=== PATIENT | female | born 1960 | race Caucasian/White ===

== ENCOUNTER 2022-10-07 11:45 | Emergency (ER) | payer OTHER, SELFPAY ==
[2022-10-07 11:50] VITALS: BP 147/99; PULSE 78; RESP 22; TEMP 36.8; O2SAT 95; BMI 36.0
[2022-10-07] MEDS: METHYLPREDNISOLONE SOD SUCC PF 125 MG/2 ML VIAL IM (12:40)
[2022-10-07] MEDS: KETOROLAC TROMETHAMINE 60 MG/2 ML VIAL IM (12:40)
--- NOTE | 2022-10-07 12:54 | CT_ITS ---
The [address] [address] Patient Name: ALY PRICE MRN: [id number] date: 1960 Sex: F Assigned Patient Location: ER Current Patient Location: ER Accession/Order Number: [id number] Exam Date: 10/07/2022 12:46 Report Date: 10/07/2022 13:11 At the request of: RONALD CHEN Procedure: CT abdomen pelvis wo con EXAMINATION: CT abdomen pelvis wo con, 10/07/2022 9:46 AM PDT HISTORY: left flank pain COMPARISON: None. TECHNIQUE: CT scan of the abdomen and pelvis was performed without IV contrast. CT dose reduction technique was used, including Automated Exposure Control. FINDINGS: Lung: No significant finding. Liver: No significant finding. Gallbladder: Absent. Spleen: No significant finding. Pancreas: No significant finding. Adrenal glands: No significant finding. Kidneys, ureters and bladder: No renal/urinary tract calculi. Bowel: Colonic diverticulosis without diverticulitis. Normal appendix. Peritoneum/retroperitoneum: No significant finding. Lymph nodes: No significant finding. Vessels: No significant finding. Body wall: Tiny fat-containing umbilical hernia. Reproductive: Uterus is absent. Bones: L2 superior and inferior endplate deformity with heterogeneous lucent and sclerotic appearance of the vertebral body, approximately 25% height loss. Sclerotic appearance of the T11 posterior vertebral body CT/CT abdomen pelvis wo con IMPRESSION: Age-indeterminate L2 superior and inferior endplate fracture deformities with approximately 25% height loss, potentially pathologic fracture. Lucent and sclerotic appearance of the L2 vertebral body. Sclerotic T11 vertebral body lesion. Correlate for any history of osseous metastasis. Electronically authenticated by: KAMALA LEGGETT Date: 10/07/2022 13:11
[2022-10-07 12:57] LABS: Bilirubin Urine NEGATIVE (NEGATIVE); Blood Urine NEGATIVE (NEGATIVE); Clarity Urine CLEAR (CLEAR); Color Urine LT. YELLOW (YELLOW); Glucose Urine UA NEGATIVE (NEGATIVE); Ketones Urine NEGATIVE (NEGATIVE); Leukocyte Esterase Urine NEGATIVE (NEGATIVE); Nitrite Urine NEGATIVE (NEGATIVE); Protein Urine NEGATIVE (NEG/TRACE); Urobilinogen Urine 0.2 EU/dL (0.2-1.0)
[2022-10-07 12:59] LABS: Urine Microscopic Indicated NO
--- NOTE | 2022-10-07 13:22 | ED_ITS ---
HPI - General Adult General Chief complaint: Abdominal Pain Stated complaint: FLANK PAIN AND BACK PAIN Time Seen by Provider: 10/07/22 11:52 Source: patient and family Mode of arrival: walk-in Limitations: no limitations History of Present Illness HPI narrative: patient had low left back pain and saw a chiropractor 2 days ago. She said that she was doing the stretching exercises the chiropractor recommended and it felt good . This morning she was bending forward brushing her teeth when she suddenly developed intense pain and spasms of the left lower back. The pain radiates toward the left side of the abdomen. No relief with baclofen or NSAID at home. No trauma or fall. Related Data Home Medications Medication Instructions Recorded Confirmed anastrozole 1 mg tablet 1 mg PO DAILY 10/07/22 10/07/22 atorvastatin 10 mg tablet 10 mg PO DAILY 10/07/22 10/07/22 metformin 500 mg tablet 500 mg PO DAILY 10/07/22 10/07/22 paroxetine HCl 30 mg tablet 30 mg PO DAILY 10/07/22 10/07/22 pregabalin 75 mg capsule 75 mg PO BID 10/07/22 10/07/22 Previous Rx's Medication Instructions Recorded methocarbamol 750 mg tablet 750 mg PO Q6H #20 tabs 10/07/22 nabumetone 750 mg tablet 750 mg PO BID #14 tabs 10/07/22 Allergies Allergy/AdvReac Type Severity Reaction Status Date / Time celecoxib [From Celebrex] Allergy Severe Verified 10/07/22 11:55 morphine Allergy Severe Verified 10/07/22 11:55 codeine Allergy Intermediate Verified 10/07/22 11:55 Exam Narrative Exam Narrative: General: Alert, no acute distress, patient resting comfortably Skin: warm, intact, no pallor noted Head: Normocephalic, atraumatic Eye: Normal conjunctiva Respiratory: No acute distress Abdomen: Normal bowel sounds, soft, nontender, no masses detected. No rebound, guarding, or rigidity noted. Back: inspection of the back shows no obvious deformity, no swelling, no ecchymosis, contusion, abrasion, swelling, erythema, fluctuance or induration. Tenderness noted to left flank and paralumbar soft tissue with some spasms. No midline lumbar or sacral/coccyx tenderness. Straight leg raise on left is positive. Straight leg raise on right is positive. No CVA tenderness noted bilaterally. Musculoskeletal: No deformity noted to bilateral lower extremities. no cyanosis or mottling noted. normal pulses at DP and PT 2+ bilaterally and symmetrically. Normal 5/5 strength at ankles with dorsiflexion and plantar flexion. Patient is able to ambulate. Normal sensation noted to both lower extremities. Neurological: AAOx4, normal sensory and motor observed. L5-S1 reflexes intact symmetrically. DTR 2+ at patellar bilaterally. Psychiatric: Cooperative and interactive. Constitutional Vital Signs, click to edit/add: Last Vital Signs Temp 98.3 F 10/07/22 11:50 Pulse 78 10/07/22 11:50 Resp 22 10/07/22 11:50 BP 147/99 H 10/07/22 11:50 Pulse Ox 95 10/07/22 11:50 O2 Del Method Room Air 10/07/22 11:50 Course Vital Signs Vital signs: Vital Signs Temperature 98.3 F 10/07/22 11:50 Pulse Rate 78 10/07/22 11:50 Respiratory Rate 22 10/07/22 11:50 Blood Pressure 147/99 H 10/07/22 11:50 Pulse Oximetry 95 10/07/22 11:50 Oxygen Delivery Method Room Air 10/07/22 11:50 Temperature 98.3 F 10/07/22 11:50 Pulse Rate 78 10/07/22 11:50 Respiratory Rate 22 10/07/22 11:50 Blood Pressure 147/99 H 10/07/22 11:50 Pulse Oximetry 95 10/07/22 11:50 Oxygen Delivery Method Room Air 10/07/22 11:50 Medical Decision Making [facility] Narrative Medical decision making narrative: negative UA. Patient given IM Toradol and IM SOlumedrol and then went for CT abd/pelvis. No kidney stone or other acute pathology identified but the patient does have an L2 endplate fracture and pathological etiology cannot be ruled out. She was discharged home with prescriptions for Relafen and Robaxina nd given a copy of her CT report to take with her to PCP follow up. Lab Data Lab results reviewed: Yes I reviewed the patient's lab results Labs: Lab Results 10/07/22 Range/Units 12:45 Urine Color Lt. yellow (YELLOW) Urine Clarity Clear (CLEAR) Urine pH 7.0 (5.0-9.0) Ur Specific [place] 1.010 (1.005-1.025) Urine Protein Negative (NEG/TRACE) mg/dL Urine Glucose (UA) Negative (NEGATIVE) mg/dL Urine Ketones Negative (NEGATIVE) mg/dL Urine Occult Blood Negative (NEGATIVE) Urine Nitrite Negative (NEGATIVE) Urine Bilirubin Negative (NEGATIVE) Urine Urobilinogen 0.2 (0.2-1.0) EU/dL Ur Leukocyte Esterase Negative (NEGATIVE) Imaging Data ct abd/pelvis: Radiologist's impression: Patient Name: ALY PRICE MRN: [facility]:[id number] date: 1960 Sex: F Assigned Patient Location: ER Current Patient Location: ER Accession/Order Number: [id number] Exam Date: 10/07/2022 12:46 Report Date: 10/07/2022 13:11 At the request of: RONALD CHEN Procedure: CT abdomen pelvis wo con EXAMINATION: CT abdomen pelvis wo con, 10/07/2022 9:46 AM PDT HISTORY: left flank pain COMPARISON: None. TECHNIQUE: CT scan of the abdomen and pelvis was performed without IV contrast. CT dose reduction technique was used, including Automated Exposure Control. FINDINGS: Lung: No significant finding. Liver: No significant finding. Gallbladder: Absent. Spleen: No significant finding. Pancreas: No significant finding. Adrenal glands: No significant finding. Kidneys, ureters and bladder: No renal/urinary tract calculi. Bowel: Colonic diverticulosis without diverticulitis. Normal appendix. Peritoneum/retroperitoneum: No significant finding. Lymph nodes: No significant finding. Vessels: No significant finding. Body wall: Tiny fat-containing umbilical hernia. Reproductive: Uterus is absent. Bones: L2 superior and inferior endplate deformity with heterogeneous lucent and sclerotic appearance of the vertebral body, approximately 25% height loss. Sclerotic appearance of the T11 posterior vertebral body IMPRESSION: Age-indeterminate L2 superior and inferior endplate fracture deformities with approximately 25% height loss, potentially pathologic fracture. Lucent and sclerotic appearance of the L2 vertebral body. Sclerotic T11 vertebral body lesion. Correlate for any history of osseous metastasis. Electronically authenticated by: KAMALA LEGGETT Date: 10/07/2022 13:11 Discharge Plan Discharge Chief Complaint: Abdominal Pain Clinical Impression: Closed L2 vertebral fracture, Low back pain, Acute lumbar myofascial strain Patient Disposition: Home, Self-Care Time of Disposition Decision: 13:32 Prescriptions / Home Meds: New nabumetone 750 mg tablet 750 mg PO BID Qty: 14 0RF methocarbamol 750 mg tablet 750 mg PO Q6H Qty: 20 0RF No Action atorvastatin 10 mg tablet 10 mg PO DAILY metformin 500 mg tablet 500 mg PO DAILY pregabalin 75 mg capsule 75 mg PO BID anastrozole 1 mg tablet 1 mg PO DAILY paroxetine HCl 30 mg tablet 30 mg PO DAILY Instructions: Vertebral Compression Fracture (ED), Acute Low Back Pain (ED), Core Strengthening Exercises (ED) Stand Alone Forms: Portal Instructions Referrals: VIK NATHAN [Primary Care Provider] - 1 week
== END 2022-10-07 13:45 | disposition home or self-care (01) ==
PROVIDERS: Emergency Provider Emergency Medicine; PCP Internal Medicine
DX: S39.012A Strain of muscle, fascia and tendon of lower back, initial encounter (principal); S32.029A Unspecified fracture of second lumbar vertebra, initial encounter for closed fracture; X50.9XXA Other and unspecified overexertion or strenuous movements or postures, initial encounter; Z79.899 Other long term (current) drug therapy
CPT/HCPCS: 74176; 81003; 96372; 99285; J2930

== ENCOUNTER 2022-11-10 13:54 | Outpatient (OUT) | payer OTHER, SELFPAY ==
--- NOTE | 2022-11-10 | CT_ITS ---
The [address] [address] Patient Name: ALY PRICE MRN: [facility]:[id number] date: 1960 Sex: F Assigned Patient Location: CT Current Patient Location: Accession/Order Number: [id number] Exam Date: 11/10/2022 15:28 Report Date: 11/11/2022 06:12 At the request of: LIZETH FOX Procedure: CT chest w con EXAM: CT scan of the chest, abdomen and pelvis using 99 mL of IV iodinated contrast. Oral contrast Dose reduction technique used: Automated exposure control and/or adjustment of the mA and/or kV according to patient size and/or use of iterative reconstruction technique. REASON FOR EXAM: Breast cancer M89.9, Z85.3 COMPARISON: CT scan dated 10/07/2022 FINDINGS: CHEST: No concerning pulmonary nodules. No lymphadenopathy in the chest. No acute airspace opacities. No pneumothorax. No pleural effusion. No acute fractures. No central or segmental pulmonary emboli. No aortic dissection. Right mastectomy with 8.4 x 1.6 cm fluid collection in the operative bed. Left seventh rib sclerotic metastasis. T6 and T11 sclerotic metastases. ABDOMEN/PELVIS: No solid organ malignancy. No lymphadenopathy in the abdomen or pelvis. L2 and L4 vertebral body metastases with L2 superior and inferior endplate pathologic fractures., These are not significantly changed. Hysterectomy. Scattered colonic diverticula. Normal appendix. No free intraperitoneal air. No free fluid in the abdomen or pelvis. No dilated or thickened loops of small bowel or colon. No hydronephrosis or obstructing renal or ureteral calculi. Liver, pancreas, spleen, bilateral kidneys, and bilateral adrenal glands are otherwise unremarkable. Remainder unremarkable. CT/CT chest w con IMPRESSION: 1. Multiple predominantly sclerotic skeletal metastases, the L2 metastasis has pathologic endplate fractures. 2. No other metastases evidence in the chest, abdomen or pelvis. 3. Right mastectomy with fluid collection in the operative bed that likely represents postoperative seroma or hematoma. Electronically authenticated by: SHAGGY DOWLING Date: 11/11/2022 06:12
--- NOTE | 2022-11-10 | CT_ITS ---
The [address] [address] Patient Name: ALY PRICE MRN: [facility]:[id number] date: 1960 Sex: F Assigned Patient Location: CT Current Patient Location: Accession/Order Number: [id number] Exam Date: 11/10/2022 15:28 Report Date: 11/11/2022 06:12 At the request of: LIZETH FOX Procedure: CT abdomen pelvis w con EXAM: CT scan of the chest, abdomen and pelvis using 99 mL of IV iodinated contrast. Oral contrast Dose reduction technique used: Automated exposure control and/or adjustment of the mA and/or kV according to patient size and/or use of iterative reconstruction technique. REASON FOR EXAM: Breast cancer M89.9, Z85.3 COMPARISON: CT scan dated 10/07/2022 FINDINGS: CHEST: No concerning pulmonary nodules. No lymphadenopathy in the chest. No acute airspace opacities. No pneumothorax. No pleural effusion. No acute fractures. No central or segmental pulmonary emboli. No aortic dissection. Right mastectomy with 8.4 x 1.6 cm fluid collection in the operative bed. Left seventh rib sclerotic metastasis. T6 and T11 sclerotic metastases. ABDOMEN/PELVIS: No solid organ malignancy. No lymphadenopathy in the abdomen or pelvis. L2 and L4 vertebral body metastases with L2 superior and inferior endplate pathologic fractures., These are not significantly changed. Hysterectomy. Scattered colonic diverticula. Normal appendix. No free intraperitoneal air. No free fluid in the abdomen or pelvis. No dilated or thickened loops of small bowel or colon. No hydronephrosis or obstructing renal or ureteral calculi. Liver, pancreas, spleen, bilateral kidneys, and bilateral adrenal glands are otherwise unremarkable. Remainder unremarkable. CT/CT abdomen pelvis w con IMPRESSION: 1. Multiple predominantly sclerotic skeletal metastases, the L2 metastasis has pathologic endplate fractures. 2. No other metastases evidence in the chest, abdomen or pelvis. 3. Right mastectomy with fluid collection in the operative bed that likely represents postoperative seroma or hematoma. Electronically authenticated by: SHAGGY DOWLING Date: 11/11/2022 06:12
== END 2022-11-10 13:55 | disposition home or self-care (01) ==
PROVIDERS: PCP Internal Medicine; Visit Provider Internal Medicine
DX: M89.9 Disorder of bone, unspecified (principal); Z85.3 Personal history of malignant neoplasm of breast
CPT/HCPCS: 71260; 74177; Q9967

== ENCOUNTER 2022-12-25 11:14 | Observation (INO) | payer OTHER, SELFPAY ==
[2022-12-25] VITALS (7 sets, daily range): BP systolic 130–156; BP diastolic 65–86; PULSE 78–89; RESP 14–20; TEMP 36.6–37.6; O2SAT 93–96; BMI 34.3; BMI 38.8
[2022-12-25] MEDS: HYDROMORPHONE HCL 2 MG/ML VIAL 1 MG IV (11:50)
[2022-12-25] MEDS: 0.9 % SODIUM CHLORIDE 1,000 ML 1000 ML IV (11:51)
--- NOTE | 2022-12-25 11:59 | ED.GENADUL1 ---
HPI - General Adult General Chief complaint: Nausea/Vomiting/Diarrhea Stated complaint: GENERAL WEAKNESS Time Seen by Provider: 12/25/22 11:24 Source: patient Mode of arrival: ambulance Limitations: no limitations History of Present Illness HPI narrative: Patient is a 62-year-old female who is presenting with nausea and vomiting from last night and today. She is also complaining of acute on chronic lower back pain, lumbar spasm. Patient had CAT scans done in September, she was diagnosed with a L2 fracture. states there were several spots in the thoracic spine the affected could be compression fractures as well.Patient had multiple MRIs done 2 weeks ago looking at her thoracic and lumbar spine along with her chest, abdomen, and pelvis. Patient has a history of breast cancer. Patient's had meniscectomy. Patient had previous chemotherapy and radiation. Patient has found out that her multiple MRIs were done 2 weeks ago does not show any metastases to the chest, abdomen or pelvis. Despite taking daily pain medication muscle axis, patient is not having any difficulties with constipation. Patient takes stool softeners daily. Patient has been struggling to get a biopsy done. To see if there is a different type of possible bone cancer so that the oncologist knows how to treat this. Patient is working with Dr. Delio Magaña. Patient has been seen the [facility] oncology unit/office at [facility]. Patient at bedside. Patient's having a hard time functioning at home waiting to get a biopsy done to see what the next steps are with treatment of cancer if it is present. Patient and are getting frustrated because time is passing. There is been difficulties with insurance covering the physician who will do the biopsy but did not covering the hospital with a facility where the biopsy would be done. The family found a facility at [facility] where the physician and hospital are covered under patient's insurance. They're trying to set up a outpatient biopsy to be done to get more information so that Dr. Magaña is able to start therapy if needed. Patient has been taking [place] and tizanidine around the clock to help with pain and muscle spasm. Patient is now declining and having a hard time functioning at home. Patient tries use cane, walker, and other family members to help her move and function and perform ADLs. Patient had nausea and vomiting of clear phlegm last night and today. Patient's had no new falls, no new injuries. There are supposed to be phone calls today were patient will have her outpatient biopsy set up. There is a concern from family and how patient gets a [place] and transfer there. We discussed taking pain and muscle relaxer medication before driving in private car, we discussed the possibility of being admitted for intractable pain, they are aware that I cannot transfer patient just to sit at [facility] in [place] for a biopsy to be done which is what they were hoping for. We discussed insurance complications at times, pt and frustrations, admission criteria, and criteria to transfer from one hospital to another. This discussion was had with patient and at bedside Related Data Home Medications Medication Instructions Recorded Confirmed anastrozole 1 mg tablet 1 mg PO DAILY 10/07/22 12/25/22 atorvastatin 10 mg tablet 10 mg PO DAILY 10/07/22 12/25/22 metformin 500 mg tablet 500 mg PO DAILY 10/07/22 12/25/22 paroxetine HCl 30 mg tablet 30 mg PO DAILY 10/07/22 12/25/22 pregabalin 75 mg capsule 75 mg PO BID 10/07/22 12/25/22 albuterol sulfate 90 mcg/actuation 2 puff inhalation Q6H PRN 12/25/22 12/25/22 aerosol inhaler shortness of breath or wheezing hydrocodone 5 mg-acetaminophen 325 1 tab PO Q4H PRN pain 12/25/22 12/25/22 mg tablet tizanidine 4 mg tablet 4 mg PO Q8H PRN muscle spasticity 12/25/22 12/25/22 Allergies Allergy/AdvReac Type Severity Reaction Status Date / Time celecoxib [From Celebrex] Allergy Severe Verified 10/07/22 11:55 morphine Allergy Severe Verified 10/07/22 11:55 Review of Systems ROS Narrative All systems are negative except as noted/marked. All systems reviewed and otherwise negative. PFSH PFSH Social History Smoking status: Former smoker Exam Narrative Exam Narrative: Nurses note and vital signs reviewed and patient is not hypoxic. General: The patient appears Uncomfortable, having intermittent lumbar spasms. Patient is resting uncomfortably on cart. Patient is not toxic, lethargic, or listless Skin: Warm, dry, no pallor noted. There is no rash noted. No petechiae, purpura. Head: Normocephalic, atraumatic Eye: Normal conjunctiva, no drainage, EOMI. PERRL Ears, Nose, Mouth, and Throat: oral mucosa is moist. Nares patent. Mouth without vesicles. Cardiovascular: Regular Rate and Rhythm, no murmur, gallop, rub Respiratory: Patient is in no distress, no accessory muscle use, lungs are clear to auscultation, no wheezing, rales or rhonchi Back: non-tender, no CVA tenderness bilaterally to percussion. No CT LS midline pain GI: soft, obese, no tenderness to palpation, no masses appreciated. No rebound, guarding, or rigidity noted. No flank pain bilateral, No distention Musculoskeletal: Patient has full range of motion of all of the extremities, no motor, sensory, or focal neurological deficits Neurological: A&O x3, normal speech Psychiatric: Cooperative Constitutional Vital Signs, click to edit/add: Last Vital Signs Temp 97.8 F 12/25/22 16:40 Pulse 89 12/25/22 16:40 Resp 14 12/25/22 16:40 BP 138/80 12/25/22 16:40 Pulse Ox 93 L 12/25/22 16:40 O2 Del Method Room Air 12/25/22 16:40 Course Vital Signs Vital signs: Vital Signs Temperature 98.3 F 12/25/22 11:15 Pulse Rate 79 12/25/22 11:15 Respiratory Rate 20 12/25/22 11:15 Blood Pressure 130/65 12/25/22 11:15 Pulse Oximetry 96 12/25/22 11:15 Temperature 97.8 F 12/25/22 16:40 Pulse Rate 89 12/25/22 16:40 Respiratory Rate 14 12/25/22 16:40 Blood Pressure 138/80 12/25/22 16:40 Pulse Oximetry 93 L 12/25/22 16:40 Oxygen Delivery Method Room Air 12/25/22 16:40 Medical Decision Making MDM Narrative Medical decision making narrative: . There has been a significant amount of time spent with this patient today with a phone call to Oly from the [facility] oncology office. I have spoken to patient's oncologist, Dr. Delio Magaña twice as well. I spent well over 45 minutes of bedside speaking to patient and several different times and trying to arrange a safe disposition for this patient. Patient was refusing to take patient home secondary to intractable pain, fall risk, intractable lumbar pain, intractable intermittent lumbar spasm and feelinng outpatient therapy with [place] and tizanidine for muscle relaxer. Patient has a outpatient biopsy set up with Dr. Little at 200PM on Sunday, December 27. [address] spoke to hospitalist Dr Dueñas. They are accepting of patient's admission secondary to intractable pain, spasm, L2 fracture, multiple spots in metastases of unknown origin of cancer in light of history of breast cancer. There admission is discharge dependent at this time, they may have discharges later this afternoon if not they should have a discharge tomorrow. They are aware that patient has a procedure scheduled at 2:00 on Sunday for bone biopsy to try and get further evaluation information on the new spots of potential cancer. 1500 patient are very thankful for the time spent at bedside, and multiple phone calls. Patient will remain in the Emergency Room until approximate 07/6029 p.m. to see if patient can be safely transferred to [facility] or patient needs to be admitted to [facility] until she is transferred tomorrow. Patient is given a 2nd dose of Dilaudid and Valium. I spoken to [facility] social worker palliative care as well about this case 2 different times and person and on the phone as well. 1600 Reviewing patient's oncology notes from [facility], from Dr. Currie, patient had a right breast cancer in 2007. Patient had a partial hysterectomy but ovaries remain. Patient had a right breast lumpectomy in 2007. Patient was treated with radiation and tamoxifen. Patient ended up having a right modified radical meniscectomy and colonoscopy In 2020. In 2020, patient was receiving chemotherapy. In September [address] that showed a L2 compression fracture and lesions to thoracic vertebral bodies. 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 Patient had MRIs done several weeks ago from today, patient had MRI of the thoracic spine and MRI of the lumbar spine. 1814 Patient is admitted to [facility] for observation until patient has a room tomorrow at [facility] for transfer. Patient has been given 2 separate doses of Dilaudid and Valium. She's been given several nausea medications as well. At 5:00PM I spoke to the nursing ranch hand supervisor Suha at [facility], and they were going to try and find a bed at [facility], but they had 5 or 6 people in the Emergency Room And most likely did not have a bed available this evening. I did call back at approximately 545PM and we spoke to the transfer line and there is no bed available tonight for transfer, patient will be admitted to [facility]. I spoke to Dr. Segovia and patient be admitted to [facility] for intractable pain, intractable lumbar spasm, inability to ambulate and function at home. Patient's refused to take her home earlier this afternoon. Patient and are very thankful for the help,. Patient has been admitted to Dr. Dueñas at [facility]. Critical care time 65 minutes exclusive from separate billable procedures that were performed. The following was considered in the determination of critical care but not limited to the level of medical decision making, intensive cardiac and/or respiratory monitoring, frequent vital sign monitoring, evaluation of laboratory studies, evaluation of radiographic studies, oxygen monitoring, and constant monitoring and speaking to family at bedside Lab Data Labs: Lab Results 12/25/22 12/25/22 Range/Units 12:04 12:20 WBC 10.5 (4.0-11.0) 10^3/uL RBC 4.46 (4.20-5.40) 10^6/uL Hgb 13.3 (12.0-16.0) g/dL Hct 41.0 (36.0-48.0) % MCV 91.9 (81.0-99.0) fL MCH 29.8 (26.7-34.0) pg MCHC 32.4 (29.9-35.2) g/dL RDW 12.1 (11.0-15.0) % Plt Count 288 (150-450) 10^3/uL MPV 8.4 L (9.5-13.5) fL Neut % (Auto) 77.4 H (43.0-75.0) % Lymph % (Auto) 14.6 L (20.5-60.0) % [place] % (Auto) 6.5 (1.7-12.0) % Eos % (Auto) 0.2 L (0.9-7.0) % Baso % (Auto) 0.4 (0.2-2.0) % Neut # (Auto) 8.1 H (1.4-6.5) 10^3/uL Lymph # (Auto) 1.5 (1.2-3.8) 10^3/uL [place] # (Auto) 0.7 (0.3-0.8) 10^3/uL Eos # (Auto) 0.0 (0.0-0.7) 10^3/uL Baso # (Auto) 0.0 (0.0-0.1) 10^3/uL Abs Immat Gran (auto) 0.09 H (0.00-0.03) 10^3/uL Imm/Tot Granulo (auto) 0.9 H (0.0-0.5) % Sodium 139 (136-145) mmol/L Potassium 3.5 (3.5-5.1) mmol/L Chloride 105 (98-107) mmol/L Carbon Dioxide 22.7 (21.0-32.0) mmol/L Anion Gap 14.8 BUN 15.0 (7.0-18.0) mg/dL Creatinine 0.66 (0.55-1.02) mg/dL Est GFR ( Amer) >60 (>=60) Est GFR (Non-Af Amer) >60 (>=60) BUN/Creatinine Ratio 22.7 Glucose 149 H (74-106) mg/dL Lactate 1.4 (0.4-2.0) mmol/L Calcium 8.7 (8.5-10.1) mg/dL Total Bilirubin 0.7 (0.2-1.0) mg/dL AST 26 (15-37) U/L ALT 33 (14-59) U/L Alkaline Phosphatase 139 H (46-116) U/L Total Protein 7.7 (6.4-8.2) g/dL Albumin 3.4 (3.4-5.0) g/dL Globulin 4.3 g/dL Albumin/Globulin Ratio 0.8 Lipase 33.0 (16.0-77.0) U/L Urine Color Lt. yellow (YELLOW) Urine Clarity Clear (CLEAR) Urine pH 6.5 (5.0-9.0) Ur Specific [place] 1.010 (1.005-1.025) Urine Protein Negative (NEG/TRACE) mg/dL Urine Glucose (UA) Negative (NEGATIVE) mg/dL Urine Ketones Negative (NEGATIVE) mg/dL Urine Occult Blood Trace-i (NEGATIVE) Urine Nitrite Negative (NEGATIVE) Urine Bilirubin Negative (NEGATIVE) Urine Urobilinogen 0.2 (0.2-1.0) EU/dL Ur Leukocyte Esterase Negative (NEGATIVE) Urine RBC 0-2 (0-2) #/HPF Urine WBC 0-2 A (NONE SEEN) #/HPF Ur Squamous Epith Cells Rare (NONE/RARE) #/LPF Urine Crystals None seen (None Seen) #/HPF Urine Bacteria None seen (NONE SEEN) #/HPF Urine Casts None seen (NONE SEEN) #/LPF Urine Mucus None seen (NONE SEEN) Discharge Plan Discharge Chief Complaint: Nausea/Vomiting/Diarrhea Clinical Impression: Closed L2 vertebral fracture, Low back pain, Nausea & vomiting, Acute lumbar myofascial strain Patient Disposition: Home, Self-Care Condition: Fair Prescriptions / Home Meds: No Action albuterol sulfate 90 mcg/actuation HFA aerosol inhaler 2 puff INHALATION Q6H PRN (Reason: shortness of breath or wheezing) hydrocodone-acetaminophen 5-325 mg tablet 1 tab PO Q4H PRN (Reason: pain) tizanidine 4 mg tablet 4 mg PO Q8H PRN (Reason: muscle spasticity) atorvastatin 10 mg tablet 10 mg PO DAILY metformin 500 mg tablet 500 mg PO DAILY pregabalin 75 mg capsule 75 mg PO BID anastrozole 1 mg tablet 1 mg PO DAILY paroxetine HCl 30 mg tablet 30 mg PO DAILY Stand Alone Forms: Portal Instructions Referrals: VIK NATHAN [Primary Care Provider] - 1 week
[2022-12-25] MEDS: DIAZEPAM 5 MG/ML - 2 ML INJ SYRINGE 2 MG IV ×2 (12:05→15:37)
[2022-12-25] MEDS: ONDANSETRON PF 4 MG/2 ML VIAL IV ×2 (12:06→22:02)
[2022-12-25] MEDS: PROCHLORPERAZINE 10 MG/2 ML VIAL 5 MG IV (12:06)
[2022-12-25 12:16] LABS: Basophils Percent Auto 0.4 % (0.2-2.0); Eosinophils Percent Auto 0.2 % (0.9-7.0); Hemoglobin 13.3 g/dL (12.0-16.0); Immature Granulocytes Abs Auto 0.09 10^3/uL (0.00-0.03); Immature Granulocytes Pct Auto 0.9 % (0.0-0.5); Lymphocytes Absolute Auto 1.5 10^3/uL (1.2-3.8); Lymphocytes Percent Auto 14.6 % (20.5-60.0); Mean Corpuscular HGB Conc 32.4 g/dL (29.9-35.2); Mean Corpuscular Hemoglobin 29.8 pg (26.7-34.0); Mean Corpuscular Volume 91.9 fL (81.0-99.0); Mean Platelet Volume 8.4 fL (9.5-13.5); Monocytes Absolute Auto 0.7 10^3/uL (0.3-0.8); Monocytes Percent Auto 6.5 % (1.7-12.0); Neutrophils Absolute Auto 8.1 10^3/uL (1.4-6.5); Neutrophils Percent Auto 77.4 % (43.0-75.0); Platelet Count 288 10^3/uL (150-450); Red Blood Count 4.46 10^6/uL (4.20-5.40); Red Cell Distribution Width 12.1 % (11.0-15.0); White Blood Count 10.5 10^3/uL (4.0-11.0)
[2022-12-25 12:27] LABS: Alanine Aminotransferase 33 U/L (14-59); Albumin Globulin Ratio 0.8; Albumin Level 3.4 g/dL (3.4-5.0); Alkaline Phosphatase 139 U/L (46-116); Anion Gap 14.8; Aspartate Amino Transferase 26 U/L (15-37); BUN Creatinine Ratio 22.7; Bilirubin Total 0.7 mg/dL (0.2-1.0); Calcium 8.7 mg/dL (8.5-10.1); Carbon Dioxide 22.7 mmol/L (21.0-32.0); Chloride 105 mmol/L (98-107); Estimated GFR (African America >60 (>=60); Estimated GFR (Non-African Ame >60 (>=60); Globulin 4.3 g/dL; Glucose 149 mg/dL (74-106); Potassium 3.5 mmol/L (3.5-5.1); Sodium 139 mmol/L (136-145); Total Protein 7.7 g/dL (6.4-8.2)
[2022-12-25 12:30] LABS: Lactate/Lactic Acid 1.4 mmol/L (0.4-2.0)
[2022-12-25 12:42] LABS: Bilirubin Urine NEGATIVE (NEGATIVE); Blood Urine TRACE-I (NEGATIVE); Clarity Urine CLEAR (CLEAR); Color Urine LT. YELLOW (YELLOW); Glucose Urine UA NEGATIVE (NEGATIVE); Ketones Urine NEGATIVE (NEGATIVE); Leukocyte Esterase Urine NEGATIVE (NEGATIVE); Nitrite Urine NEGATIVE (NEGATIVE); Protein Urine NEGATIVE (NEG/TRACE); Urobilinogen Urine 0.2 EU/dL (0.2-1.0); pH Urine 6.5 (5.0-9.0)
[2022-12-25 12:48] LABS: Bacteria Urine NONE SEEN #/HPF (NONE SEEN); Cast Seen? NONE SEEN #/LPF (NONE SEEN); Crystals Seen? None Seen #/HPF (None Seen); Mucus Urine NONE SEEN (NONE SEEN); RBC Urine 0-2 #/HPF (0-2); Squamous Epithelial Cell Urine RARE #/LPF (NONE/RARE); WBC Urine 0-2 #/HPF (NONE SEEN)
[2022-12-25] MEDS: HYDROMORPHONE HCL 2 MG/ML VIAL IV (15:36)
[2022-12-25] MEDS: HYDROMORPHONE HCL 1 MG/ML CARTRIDGE IV (22:02)
[2022-12-25] MEDS: PREGABALIN 75 MG CAPSULE PO (22:03)
[2022-12-25 22:15] LABS: Glucometer 135 mg/dL (74-106)
[2022-12-26] MEDS: DIAZEPAM 5 MG/ML - 2 ML INJ SYRINGE IV (01:08)
[2022-12-26] MEDS: ONDANSETRON PF 4 MG/2 ML VIAL IV ×2 (04:32→09:22)
[2022-12-26 04:54] LABS: Basophils Absolute Auto 0.1 10^3/uL (0.0-0.1); Basophils Percent Auto 0.6 % (0.2-2.0); Eosinophils Percent Auto 0.3 % (0.9-7.0); Hematocrit 41.1 % (36.0-48.0); Hemoglobin 13.3 g/dL (12.0-16.0); Immature Granulocytes Abs Auto 0.07 10^3/uL (0.00-0.03); Immature Granulocytes Pct Auto 0.6 % (0.0-0.5); Lymphocytes Absolute Auto 2.6 10^3/uL (1.2-3.8); Lymphocytes Percent Auto 21.4 % (20.5-60.0); Mean Corpuscular HGB Conc 32.4 g/dL (29.9-35.2); Mean Corpuscular Hemoglobin 29.8 pg (26.7-34.0); Mean Corpuscular Volume 91.9 fL (81.0-99.0); Mean Platelet Volume 8.4 fL (9.5-13.5); Monocytes Percent Auto 8.5 % (1.7-12.0); Neutrophils Absolute Auto 8.3 10^3/uL (1.4-6.5); Neutrophils Percent Auto 68.6 % (43.0-75.0); Platelet Count 342 10^3/uL (150-450); Red Blood Count 4.47 10^6/uL (4.20-5.40); Red Cell Distribution Width 12.4 % (11.0-15.0); White Blood Count 12.1 10^3/uL (4.0-11.0)
[2022-12-26] MEDS: ACETAMINOPHEN 500 MG TABLET 1000 MG PO (05:00)
[2022-12-26 05:09] VITALS: BP 139/74; PULSE 78; RESP 20; TEMP 36.9; O2SAT 93
[2022-12-26 05:20] LABS: Alanine Aminotransferase 34 U/L (14-59); Albumin Globulin Ratio 0.8; Albumin Level 3.6 g/dL (3.4-5.0); Alkaline Phosphatase 145 U/L (46-116); Anion Gap 13.9; Aspartate Amino Transferase 24 U/L (15-37); BUN Creatinine Ratio 13.9; Bilirubin Total 0.9 mg/dL (0.2-1.0); Calcium 8.9 mg/dL (8.5-10.1); Carbon Dioxide 24.7 mmol/L (21.0-32.0); Chloride 104 mmol/L (98-107); Estimated GFR (African America >60 (>=60); Estimated GFR (Non-African Ame >60 (>=60); Globulin 4.5 g/dL; Glucose 140 mg/dL (74-106); Potassium 3.6 mmol/L (3.5-5.1); Sodium 139 mmol/L (136-145); Total Protein 8.1 g/dL (6.4-8.2)
[2022-12-26 07:51] VITALS: O2SAT 91
--- NOTE | 2022-12-26 09:00 | CM.NOTE ---
Rounds made with Dr. Segovia pt will be transferred this AM to [facility].
[2022-12-26] MEDS: HYDROMORPHONE HCL 1 MG/ML CARTRIDGE IV (09:18)
--- NOTE | 2022-12-26 10:22 | PM.HP ---
H&P: HPI History of Present Illness Chief complaint: Weakness, nausea and vomiting Narrative: 62 y/o female with a history of breast cancer previously treated by mastectomy along with chemo and radiation presents with weakness. C/o low back pain for months. In September CT showed lumbar compression fracture and likely metastatic disease. Found beverley lesions throughout lumbar and thoracic spine. Following with oncology and attempting to arrange for biopsy and scheduled 12/27 in [place]. Increased pain and weakness. Not able to ambulate or move right leg. Severe pain and norco not helping. Developed nausea and vomiting due to pain and to ER. Labs showed normal CBC and chem 14. Normal UA and chest x-ray. Discussed with oncology and recommended transfer for biopsy and treatment. Contacted [place] and accepted but no available bed and admitted. Started zofran and dilaudid. Comfortable overnight and pain tolerable. Review of Systems ROS Constitutional Denies: fever, chills or night sweats Cardiovascular Denies: chest pain, palpitations, edema or lightheadedness Respiratory Denies: shortness of breath, cough or wheezing Gastrointestinal Reports: nausea and vomiting; Denies: abdominal pain or diarrhea Genitourinary Denies: painful urination [facility] Medical History (Updated 12/26/22 @ 09:30 by Remigio Segovia MD) Acute lumbar myofascial strain ?S39.012A - Strain of muscle, fascia and tendon of lower back, initial encounter (ICD-10) Closed L2 vertebral fracture ?S32.029A - Unspecified fracture of second lumbar vertebra, initial encounter for closed fracture (ICD-10) Low back pain ?M54.50 - Low back pain, unspecified (ICD-10) Surgical History (Updated 12/25/22 @ 18:43 by Phyllis Walker) H/O right mastectomy ?Z90.11 - Acquired absence of right breast and nipple (ICD-10) H/O: hysterectomy ?Z90.710 - Acquired absence of both cervix and uterus (ICD-10) History of lumpectomy of right breast ?Z98.890 - Other specified postprocedural states (ICD-10) Hx of cholecystectomy ?Z90.49 - Acquired absence of other specified parts of digestive tract (ICD-10) Family History (Updated 12/25/22 @ 18:45 by Phyllis Walker) Mother Family history of CHF (congestive heart failure) Family history of COPD (chronic obstructive pulmonary disease) Family history of hypertension Grandson No problems noted. Grandmother Family history of diabetes mellitus Father Family history of cancer Grandfather Family history of hypertension Social History (Updated 12/25/22 @ 18:46 by Phyllis Walker) Within the past year, how often did you have a drink containing alcohol: never Within the past year, how many standard drinks containing alcohol did you have on a typical day: 1 or 2 Within the past year, how often did you have six or more drinks on one occasion: never Total score: 0 Score interpretation: A score less than 3 is consistent with normal alcohol consumption. Smoking status: Former smoker Non-prescribed substance use: denies use Previous occupational history: retired Highest level of school completed/degree received: high school graduate Are you now , , , , never or living with a partner: In a typical week, how many times do you talk on the telephone with family, friends, or neighbors: 3 or more times per week How often do you get together with friends or relatives: 3 or more times per week How often do you attend sabianist or anabaptist services: 4 or more times per year Do you belong to any clubs or organizations such as sabianist groups unions, [employer] or athletic groups, or school groups: no Total score: 3 Score interpretation: A score of greater than or equal to 2 indicates the lowest level of social isolation. Little interest or pleasure in doing things: not at all Feeling down, depressed, or hopeless: not at all Feel stressed/tense/nervous/anxious/difficulty sleeping: not at all Do you think of yourself as: straight/heterosexual Gender Identity: female Meds Home Medications and Allergies Home Medications Medication Instructions Recorded Confirmed Type anastrozole 1 mg tablet 1 mg PO DAILY 10/07/22 12/25/22 History atorvastatin 10 mg tablet 10 mg PO DAILY 10/07/22 12/25/22 History metformin 500 mg tablet 500 mg PO DAILY 10/07/22 12/25/22 History paroxetine HCl 30 mg tablet 30 mg PO DAILY 10/07/22 12/25/22 History pregabalin 75 mg capsule 75 mg PO BID 10/07/22 12/25/22 History albuterol sulfate 90 mcg/actuation 2 puff inhalation Q6H PRN 12/25/22 12/25/22 History aerosol inhaler shortness of breath or wheezing hydrocodone 5 mg-acetaminophen 325 1 tab PO Q4H PRN pain 12/25/22 12/25/22 History mg tablet tizanidine 4 mg tablet 4 mg PO Q8H PRN muscle spasticity 12/25/22 12/25/22 History Allergies Allergy/AdvReac Type Severity Reaction Status Date / Time celecoxib [From Celebrex] Allergy Severe Verified 10/07/22 11:55 morphine Allergy Severe Verified 10/07/22 11:55 Exam Constitutional Vital Signs, click to edit/add: Last Vital Signs Temp 98.4 F 12/26/22 05:09 Pulse 78 12/26/22 05:09 Resp 20 12/26/22 05:09 BP 139/74 12/26/22 05:09 Pulse Ox 91 L 12/26/22 07:51 O2 Del Method Room Air 12/26/22 05:09 Documenting provider has reviewed patient's vital signs: yes Common normals: no apparent distress, oriented x3 and alert HENMT Common normals: normocephalic Eye Common normals: PERRL and EOMs intact bilaterally Respiratory Common normals: normal respiratory effort and clear to auscultation bilaterally Cardio Common normals: regular rate, regular rhythm, no gallops, no murmurs and no rub GI Common normals: Normal to inspection, nondistended, normoactive bowel sounds present and non-tender Extremity Common normals: no pedal edema Results Labs Labs: Short CBC 12/25/22 12/26/22 Range/Units 12:04 04:06 WBC 10.5 12.1 H (4.0-11.0) 10^3/uL Hgb 13.3 13.3 (12.0-16.0) g/dL Hct 41.0 41.1 (36.0-48.0) % Plt Count 288 342 (150-450) 10^3/uL BMP 12/25/22 12/26/22 12:04 04:06 Sodium 139 139 Potassium 3.5 3.6 Chloride 105 104 Carbon Dioxide 22.7 24.7 BUN 15.0 11.0 Creatinine 0.66 0.79 Glucose 149 H 140 H Calcium 8.7 8.9 Liver Function 12/25/22 12/26/22 Range/Units 12:04 04:06 Total Bilirubin 0.7 0.9 (0.2-1.0) mg/dL AST 26 24 (15-37) U/L ALT 33 34 (14-59) U/L Alkaline Phosphatase 139 H 145 H (46-116) U/L Albumin 3.4 3.6 (3.4-5.0) g/dL Urine 12/25/22 Range/Units 12:20 Urine Color Lt. 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 Improved with medication. Accepted at [place] and bed available. Transferred in stable condition for further treatment and biopsy.
== END 2022-12-26 09:44 | disposition short-term general hospital (02) ==
LOC: ER 15:25 → MS 18:31
PROVIDERS: Admitting Provider Family Medicine; Emergency Provider Emergency Medicine; PCP Internal Medicine; Visit Provider Family Medicine
DX: M84.58XA Pathological fracture in neoplastic disease, other specified site, initial encounter for fracture (principal); R11.2 Nausea with vomiting, unspecified; E78.5 Hyperlipidemia, unspecified; R73.03 Prediabetes; Z85.3 Personal history of malignant neoplasm of breast; Z90.11 Acquired absence of right breast and nipple; Z90.710 Acquired absence of both cervix and uterus; Z90.49 Acquired absence of other specified parts of digestive tract; Z87.891 Personal history of nicotine dependence; Z79.899 Other long term (current) drug therapy; Z79.84 Long term (current) use of oral hypoglycemic drugs
CPT/HCPCS: 36415; 80053; 81001; 82948; 83605; 83690; 85025; 96361; 96374; 96375; 96376; 99285; G0378; J1170

== ENCOUNTER 2023-01-28 14:17 | Emergency (ER) | payer MEDICARE, OTHER, SELFPAY ==
[2023-01-28] VITALS (48 sets, daily range): BP systolic 108–163; BP diastolic 73–92; PULSE 74–123; RESP 14–26; TEMP 37; O2SAT 90–99; BMI 35.7
--- NOTE | 2023-01-28 14:31 | ECG_ITS ---
The [facility] Test Date: 2023-01-28 Pat Name: ALY PRICE Department: Room: - Gender: Female Box Blank Machine Feeder: : 1960 Requested By: VIK NATHAN Order Number: [id number] Reading MD: DAPHNIE PANIAGUA Measurements Intervals [place] Rate: 75 P: 70 SD: 156 QRS: 68 QRSD: 88 T: 51 QT: 394 QTc: 423 Interpretive Statements 1100 Sinus rhythm 9110 normal ECG No previous ECG available for comparison Electronically Signed On 01-28-2023 20:02:26 EST by DAPHNIE PANIAGUA
[2023-01-28 14:32] LABS: Glucometer 96 mg/dL (74-106)
--- NOTE | 2023-01-28 14:34 | XR_ITS ---
The [address] [address] Patient Name: ALY PRICE MRN: [id number] date: 1960 Sex: F Assigned Patient Location: ER Current Patient Location: ER Accession/Order Number: [id number] Exam Date: 01/28/2023 14:50 Report Date: 01/28/2023 15:23 At the request of: SELIN CARDENAS Procedure: XR chest 1V EXAM: XR chest 1V HISTORY: sob COMPARISON: CT chest 11/10/2022. TECHNIQUE: Single view of the chest FINDINGS: Heart size normal given technique. No focal consolidation, pleural effusion, pulmonary congestion or pneumothorax. XR/XR chest 1V IMPRESSION: No acute findings. Electronically authenticated by: KAMALA LEGGETT Date: 01/28/2023 15:23
[2023-01-28 14:59] LABS: Basophils Percent Auto 0.3 % (0.2-2.0); Eosinophils Percent Auto 0.1 % (0.9-7.0); Hematocrit 41.6 % (36.0-48.0); Hemoglobin 13.5 g/dL (12.0-16.0); Immature Granulocytes Abs Auto 0.07 10^3/uL (0.00-0.03); Immature Granulocytes Pct Auto 0.7 % (0.0-0.5); Lymphocytes Absolute Auto 2.1 10^3/uL (1.2-3.8); Lymphocytes Percent Auto 19.3 % (20.5-60.0); Mean Corpuscular HGB Conc 32.5 g/dL (29.9-35.2); Mean Corpuscular Hemoglobin 29.5 pg (26.7-34.0); Mean Platelet Volume 8.9 fL (9.5-13.5); Monocytes Absolute Auto 0.7 10^3/uL (0.3-0.8); Monocytes Percent Auto 6.5 % (1.7-12.0); Neutrophils Absolute Auto 7.8 10^3/uL (1.4-6.5); Neutrophils Percent Auto 73.1 % (43.0-75.0); Platelet Count 344 10^3/uL (150-450); Red Blood Count 4.57 10^6/uL (4.20-5.40); Red Cell Distribution Width 12.2 % (11.0-15.0); White Blood Count 10.7 10^3/uL (4.0-11.0)
[2023-01-28 15:16] LABS: Alanine Aminotransferase 50 U/L (14-59); Albumin Globulin Ratio 0.6; Albumin Level 2.9 g/dL (3.4-5.0); Alkaline Phosphatase 139 U/L (46-116); Anion Gap 16.6; Aspartate Amino Transferase 31 U/L (15-37); BUN Creatinine Ratio 14.1; Bilirubin Total 0.5 mg/dL (0.2-1.0); Calcium 8.9 mg/dL (8.5-10.1); Carbon Dioxide 23.7 mmol/L (21.0-32.0); Chloride 101 mmol/L (98-107); Estimated GFR (African America >60 (>=60); Estimated GFR (Non-African Ame >60 (>=60); Globulin 4.8 g/dL; Glucose 88 mg/dL (74-106); Potassium 4.3 mmol/L (3.5-5.1); Sodium 137 mmol/L (136-145); Total Protein 7.7 g/dL (6.4-8.2); Troponin I High Sensitivity 6.6 pg/mL (4.0-51.3)
[2023-01-28 15:21] LABS: INR 0.93; Prothrombin Time 9.9 sec (9.0-11.6)
[2023-01-28] MEDS: 0.9 % SODIUM CHLORIDE 1,000 ML 1000 ML IV (15:22)
[2023-01-28] MEDS: ONDANSETRON PF 4 MG/2 ML VIAL IV (15:22)
[2023-01-28] MEDS: PANTOPRAZOLE SODIUM 40 MG VIAL IV (15:22)
--- NOTE | 2023-01-28 16:27 | ED.NAVMDI1 ---
HPI - Nausea/Vomiting/Diarrhea General Chief complaint: Nausea/Vomiting/Diarrhea Stated complaint: nausea/ general weakness Time Seen by Provider: 01/28/23 14:31 Source: patient Mode of arrival: ambulance Limitations: no limitations History of Present Illness HPI Narrative: Patient is coming to us with nausea vomiting and diarrhea she recently was diagnosed with a metastatic breast cancer and she is in rehab facility for her back pain She is coming to us with a 4 days history of nausea vomiting and decreased p.o. intake with exposure to people with COVID-19 at her rehab facility No diarrhea no constipation and the patient have no leg pain or any weakness or numbness or tingling Related Data Home Medications Medication Instructions Recorded Confirmed anastrozole 1 mg tablet 1 mg PO DAILY 10/07/22 12/25/22 atorvastatin 10 mg tablet 10 mg PO DAILY 10/07/22 12/25/22 metformin 500 mg tablet 500 mg PO DAILY 10/07/22 12/25/22 paroxetine HCl 30 mg tablet 30 mg PO DAILY 10/07/22 12/25/22 pregabalin 75 mg capsule 75 mg PO BID 10/07/22 12/25/22 albuterol sulfate 90 mcg/actuation 2 puff inhalation Q6H PRN 12/25/22 12/25/22 aerosol inhaler shortness of breath or wheezing hydrocodone 5 mg-acetaminophen 325 1 tab PO Q4H PRN pain 12/25/22 12/25/22 mg tablet tizanidine 4 mg tablet 4 mg PO Q8H PRN muscle spasticity 12/25/22 12/25/22 Allergies Allergy/AdvReac Type Severity Reaction Status Date / Time celecoxib [From Celebrex] Allergy Severe Verified 01/28/23 14:25 morphine Allergy Severe Verified 01/28/23 14:25 gabapentin Allergy Unknown Verified 01/28/23 14:25 Review of Systems ROS Status of ROS 10 or more systems reviewed and unremarkable except as noted in history and below [facility] Medical History (Updated 01/28/23 @ 19:06 by Kylah España MD) Acute lumbar myofascial strain ?S39.012A - Strain of muscle, fascia and tendon of lower back, initial encounter (ICD-10) Closed L2 vertebral fracture ?S32.029A - Unspecified fracture of second lumbar vertebra, initial encounter for closed fracture (ICD-10) Low back pain ?M54.50 - Low back pain, unspecified (ICD-10) Surgical History (Updated 12/25/22 @ 18:43 by Phyllis Walker) H/O right mastectomy ?Z90.11 - Acquired absence of right breast and nipple (ICD-10) H/O: hysterectomy ?Z90.710 - Acquired absence of both cervix and uterus (ICD-10) History of lumpectomy of right breast ?Z98.890 - Other specified postprocedural states (ICD-10) Hx of cholecystectomy ?Z90.49 - Acquired absence of other specified parts of digestive tract (ICD-10) Family History (Updated 12/25/22 @ 18:45 by Phyllis Walker) Mother Family history of CHF (congestive heart failure) Family history of COPD (chronic obstructive pulmonary disease) Family history of hypertension Grandson No problems noted. Grandmother Family history of diabetes mellitus Father Family history of cancer Grandfather Family history of hypertension Social History (Updated 12/25/22 @ 18:46 by Phyllis Walker) Within the past year, how often did you have a drink containing alcohol: never Within the past year, how many standard drinks containing alcohol did you have on a typical day: 1 or 2 Within the past year, how often did you have six or more drinks on one occasion: never Total score: 0 Score interpretation: A score less than 3 is consistent with normal alcohol consumption. Smoking status: Former smoker Non-prescribed substance use: denies use Previous occupational history: retired Highest level of school completed/degree received: high school graduate Are you now , , , , never or living with a partner: In a typical week, how many times do you talk on the telephone with family, friends, or neighbors: 3 or more times per week How often do you get together with friends or relatives: 3 or more times per week How often do you attend christian or restoration services: 4 or more times per year Do you belong to any clubs or organizations such as christian groups unions, fraternal or athletic groups, or school groups: no Total score: 3 Score interpretation: A score of greater than or equal to 2 indicates the lowest level of social isolation. Little interest or pleasure in doing things: not at all Feeling down, depressed, or hopeless: not at all Feel stressed/tense/nervous/anxious/difficulty sleeping: not at all Do you think of yourself as: straight/heterosexual Gender Identity: female Exam Narrative Exam Narrative: Nurses notes and vital signs reviewed and patient is not hypoxic. General: Well-appearing and in no apparent distress. Skin: Warm, dry, no pallor noted. No rash. Head: Normocephalic, atraumatic. Neck: Supple, non-tender. Eye: Pupils are equal, round and EOMI. No scleral icterus. Ears, Nose, Mouth, and Throat: TM are clear, no nasal mucosal hypertrophy. Oral mucosa is moist, no posterior oropharynx erythema, uvula is mid-line Cardiovascular: Regular Rate and Rhythm without murmur, gallop or rub. Respiratory: No accessory muscle use or respiratory distress. Lungs are clear to auscultation, no wheezing, rales or rhonchi Chest Wall: no tenderness Back: No midline thoracic or lumbar vertebral tenderness. No CVA tenderness Musculoskeletal: normal ROM, no calf or popliteal tenderness, no lower extremity edema/swelling GI: Abdomen is soft, lower abdominal tenderness No masses appreciated. No tenderness to palpation. No rebound, guarding, or rigidity noted. Neurological: A&O x4. No cranial nerve dysfunction observed. No truncal ataxia. Moves all extremities. Sensation intact. Psychiatric: Cooperative and interactive. Normal mood and affect. Constitutional Vital Signs, click to edit/add: Last Vital Signs Temp 98.6 F 01/28/23 14:20 Pulse 92 H 01/28/23 18:00 Resp 24 01/28/23 18:00 BP 138/83 01/28/23 18:00 Pulse Ox 94 L 01/28/23 17:46 O2 Del Method Room Air 01/28/23 14:20 Course Vital Signs Vital signs: Vital Signs Blood Pressure 121/90 01/28/23 14:19 Temperature 98.6 F 01/28/23 14:20 Pulse Rate 92 H 01/28/23 18:00 Respiratory Rate 24 01/28/23 18:00 Blood Pressure 138/83 01/28/23 18:00 Pulse Oximetry 94 L 01/28/23 17:46 Oxygen Delivery Method Room Air 01/28/23 14:20 MDM - Nausea/Vomiting/Diarrhea MDM Narrative Medical decision making narrative: The patient EKG in the ER showing sinus rhythm with a heart rate of [address] elevation or depression CBC and chemistry showed no acute significant pathology The patient was just diagnosed with UTI recently started on Bactrim yesterday Her presentation today could be secondary to gastritis from the fact that she is started on multiple pain medication muscle relaxant as well as antibiotic over the last few days she also had a negative Patient CAT scan showed that she had a new compression fracture at 50% increase and it is at the L2 level the patient have no symptoms of weakness numbness tingling or any incontinence of urine or stool but according to the CAT scan this is a new finding that has progressed Right now we need to address this the patient follow-up with Brandy laird and plan for discharge started The patient care will be transferred to Dr. Charles Lab Data Labs: Lab Results 01/28/23 01/28/23 01/28/23 Range/Units 14:30 14:40 15:03 WBC 10.7 (4.0-11.0) 10^3/uL RBC 4.57 (4.20-5.40) 10^6/uL Hgb 13.5 (12.0-16.0) g/dL Hct 41.6 (36.0-48.0) % MCV 91.0 (81.0-99.0) fL MCH 29.5 (26.7-34.0) pg MCHC 32.5 (29.9-35.2) g/dL RDW 12.2 (11.0-15.0) % Plt Count 344 (150-450) 10^3/uL MPV 8.9 L (9.5-13.5) fL Neut % (Auto) 73.1 (43.0-75.0) % Lymph % (Auto) 19.3 L (20.5-60.0) % Bowie % (Auto) 6.5 (1.7-12.0) % Eos % (Auto) 0.1 L (0.9-7.0) % Baso % (Auto) 0.3 (0.2-2.0) % Neut # (Auto) 7.8 H (1.4-6.5) 10^3/uL Lymph # (Auto) 2.1 (1.2-3.8) 10^3/uL Bowie # (Auto) 0.7 (0.3-0.8) 10^3/uL Eos # (Auto) 0.0 (0.0-0.7) 10^3/uL Baso # (Auto) 0.0 (0.0-0.1) 10^3/uL Abs Immat Gran (auto) 0.07 H (0.00-0.03) 10^3/uL Imm/Tot Granulo (auto) 0.7 H (0.0-0.5) % PT 9.9 (9.0-11.6) sec INR 0.93 Sodium 137 (136-145) mmol/L Potassium 4.3 (3.5-5.1) mmol/L Chloride 101 (98-107) mmol/L Carbon Dioxide 23.7 (21.0-32.0) mmol/L Anion Gap 16.6 BUN 10.0 (7.0-18.0) mg/dL Creatinine 0.71 (0.55-1.02) mg/dL Est GFR ( Amer) >60 (>=60) Est GFR (Non-Af Amer) >60 (>=60) BUN/Creatinine Ratio 14.1 Glucose 88 (74-106) mg/dL Calcium 8.9 (8.5-10.1) mg/dL Total Bilirubin 0.5 (0.2-1.0) mg/dL AST 31 (15-37) U/L ALT 50 (14-59) U/L Alkaline Phosphatase 139 H (46-116) U/L Troponin I High Sens 6.6 (4.0-51.3) pg/mL Total Protein 7.7 (6.4-8.2) g/dL Albumin 2.9 L (3.4-5.0) g/dL Globulin 4.8 g/dL Albumin/Globulin Ratio 0.6 SARS-CoV-2 (PCR) (NEGATIVE) POC Glucose 96 (74-106) mg/dL 01/28/23 Range/Units 16:05 WBC (4.0-11.0) 10^3/uL RBC (4.20-5.40) 10^6/uL Hgb (12.0-16.0) g/dL Hct (36.0-48.0) % MCV (81.0-99.0) fL MCH (26.7-34.0) pg MCHC (29.9-35.2) g/dL RDW (11.0-15.0) % Plt Count (150-450) 10^3/uL MPV (9.5-13.5) fL Neut % (Auto) (43.0-75.0) % Lymph % (Auto) (20.5-60.0) % Bowie % (Auto) (1.7-12.0) % Eos % (Auto) (0.9-7.0) % Baso % (Auto) (0.2-2.0) % Neut # (Auto) (1.4-6.5) 10^3/uL Lymph # (Auto) (1.2-3.8) 10^3/uL Bowie # (Auto) (0.3-0.8) 10^3/uL Eos # (Auto) (0.0-0.7) 10^3/uL Baso # (Auto) (0.0-0.1) 10^3/uL Abs Immat Gran (auto) (0.00-0.03) 10^3/uL Imm/Tot Granulo (auto) (0.0-0.5) % PT (9.0-11.6) sec INR Sodium (136-145) mmol/L Potassium (3.5-5.1) mmol/L Chloride (98-107) mmol/L Carbon Dioxide (21.0-32.0) mmol/L Anion Gap BUN (7.0-18.0) mg/dL Creatinine (0.55-1.02) mg/dL Est GFR ( Amer) (>=60) Est GFR (Non-Af Amer) (>=60) BUN/Creatinine Ratio Glucose (74-106) mg/dL Calcium (8.5-10.1) mg/dL Total Bilirubin (0.2-1.0) mg/dL AST (15-37) U/L ALT (14-59) U/L Alkaline Phosphatase (46-116) U/L Troponin I High Sens (4.0-51.3) pg/mL Total Protein (6.4-8.2) g/dL Albumin (3.4-5.0) g/dL Globulin g/dL Albumin/Globulin Ratio SARS-CoV-2 (PCR) Negative (NEGATIVE) POC Glucose (74-106) mg/dL Discharge Plan Discharge Patient Disposition: Still a Patient
[2023-01-28 17:07] LABS: SARS-CoV-2 Ag NEGATIVE (NEGATIVE)
--- NOTE | 2023-01-28 17:44 | CT_ITS ---
[address] [address] Patient Name: ALY PRICE MRN: [id number] date: 1960 Sex: F Assigned Patient Location: ER Current Patient Location: ER Accession/Order Number: [id number] Exam Date: 01/28/2023 17:38 Report Date: 01/28/2023 18:19 At the request of: SELIN CARDENAS Procedure: CT abdomen pelvis wo con EXAMINATION: CT abdomen pelvis wo con, 01/28/2023 2:38 PM PST HISTORY: abd pain lower COMPARISON: 10/07/2022 TECHNIQUE: CT scan of the abdomen and pelvis was performed without IV contrast. CT dose reduction technique was used, including Automated Exposure Control. FINDINGS: Lung: No significant finding. Liver: No significant finding. Gallbladder: Absent. Spleen: No significant finding. Pancreas: No significant finding. Adrenal glands: No significant finding. Kidneys, ureters and bladder: No renal/urinary tract calculi. Mild circumferential bladder wall thickening. Bowel: Normal appendix. No evidence of bowel obstruction. Colonic diverticulosis without diverticulitis. Peritoneum/retroperitoneum: No significant finding. Lymph nodes: No significant finding. Vessels: Mild scattered atherosclerotic calcification. Body wall: No significant finding. Reproductive: No significant finding. Bones: Atherosclerotic changes of the L2 vertebrae, progressed from prior exam and with increased height loss, to 50%. Progressed/new L4 Lytic and sclerotic lesions. No height loss. L5 superior endplate sclerotic lesion is new from prior exam. Lytic lesion of the S1 vertebral body, involving the anterior cortex, new from prior exam, series 6 image 68. Increasing lytic and sclerotic changes of the T11 vertebral body. No change in vertebral body height. T9 sclerotic lesion is new from prior exam. Sclerotic lesion of the T8 vertebral body, not imaged on prior exam. Congenital spinal canal stenosis. Mild L2-L3 retrolisthesis, unchanged. Severe spinal canal stenosis at the L2-L3 level. CT/CT abdomen pelvis wo con IMPRESSION: New/progressing osseous lytic and sclerotic presumed metastases. This could also be secondary to treatment-related change depending on history. Progressed pathologic fracture of the L2 vertebrae with 50% height loss. Severe spinal canal stenosis at this level. Bladder wall thickening, correlate for cystitis. Electronically authenticated by: KAMALA LEGGETT Date: 01/28/2023 18:19
[2023-01-28] MEDS: 0.9 % SODIUM CHLORIDE 500 ML IV (18:10)
[2023-01-28] MEDS: FAMOTIDINE/PF 20 MG/2 ML VIAL IV (19:52)
[2023-01-28] MEDS: DEXAMETHASONE SOD PHOS (PF) 10 MG/ML VIAL INJ (19:54)
[2023-01-28] MEDS: HYDROCODONE/ACET 5-325 MG TABLET 1 TAB PO (19:54)
[2023-01-29 15:43] LABS: SARS-CoV-2 NAA NOT DETECTED (NOT DETECTE)
== END 2023-01-28 22:14 | disposition home or self-care (01) ==
PROVIDERS: Emergency Medicine; Emergency Provider Internal Medicine; PCP Internal Medicine
DX: R11.2 Nausea with vomiting, unspecified (principal); C50.919 Malignant neoplasm of unspecified site of unspecified female breast; C79.9 Secondary malignant neoplasm of unspecified site; M48.56XA Collapsed vertebra, not elsewhere classified, lumbar region, initial encounter for fracture; R19.7 Diarrhea, unspecified; Z79.899 Other long term (current) drug therapy; Z90.11 Acquired absence of right breast and nipple; Z90.710 Acquired absence of both cervix and uterus; Z90.49 Acquired absence of other specified parts of digestive tract; Z87.891 Personal history of nicotine dependence; R10.9 Unspecified abdominal pain
CPT/HCPCS: 36415; 71045; 74176; 80053; 82948; 84484; 85025; 85610; 87635; 87811; 93005; 96361; 96372; 96374; 96375; 99285